=== PATIENT | male | born 1980 | race Caucasian/White ===

== ENCOUNTER 2019-03-15 02:07 | Emergency (ER) | payer BC ==
[2019-03-15] MEDS ORDERED: KETOROLAC 30 MG/ML VIAL IVP ONE (02:24)
--- NOTE | 2019-03-15 02:27 | Emergency Department Record ---
History of Present Illness - General Chief Complaint: Abdominal Pain Stated Complaint: RLQ PAIN Time Seen by Provider: 03/15/19 02:11 Source: Patient Mode of Arrival: Ambulatory Limitations: No limitations - History of Present Illness Initial Comments: 38 yo male presents to ED for evaluation of pain to the right flank and right lateral abdomen that began 2 days ago. Patient denies fevers, chills, nausea, or vomiting symptoms. Patient does report pain with ROM of the trunk and valsalva maneuvers. Patient denies urinary symptoms, denies history of kidney stones. Patient does report previous ventral hernia repair several years ago, denies previous appy/yonis. Patient denies health problems other than HTN. MD Complaint: Abdominal pain, Flank pain Onset/Timin -: Days(s) Location: R Flank Radiation: R flank, RLQ Severity: Severe Severity scale (1-10): 8 Quality: Sharp, Stabbing Consistency: Constant, Getting worse Worsens With: Movement Associated Symptoms: Constipation - Related Data Previous Rx's Medication Instructions Recorded Moxifloxacin HCl 400 mg PO DAILY #10 tablet 03/15/19 Allergies Allergy/AdvReac Type Severity Reaction Status Date / Time codeine Allergy HIVES Verified 03/15/19 02:09 metronidazole [From Flagyl] Allergy HIVES Verified 03/15/19 02:09 Penicillins Allergy HIVES Verified 03/15/19 02:09 chloraprep Allergy HIVES Uncoded 04/21/15 21:00 Travel Screening - Travel/Exposure Within Last 30 Days Have you traveled within the last 30 days?: No - Travel Symptoms Symptom Screening: None Review of Systems Constitutional: Denies: Chills, Fever, Malaise, Night sweats Eyes: Denies: Eye discharge, Eye pain ENT: Denies: Congestion, Ear pain, Epistaxis Respiratory: Denies: Cough, Dyspnea Cardiovascular: Denies: Chest pain, Dyspnea on exertion Endocrine: Denies: Fatigue, Heat or cold intolerance Gastrointestinal: Reports: Abdominal pain, Constipation. Denies: Nausea, Vomiting Genitourinary: Denies: Dysuria, Frequency, Hematuria, Incontinence, Retention Musculoskeletal: Reports: Back pain. Denies: Arthralgia Skin: Denies: Bruising, Change in color Neurological: Denies: Abnormal gait, Confusion, Headache, Seizure Psychiatric: Denies: Anxiety Hematological/Lymphatic: Denies: Anemia, Blood Clots Past Medical History - SOCIAL HISTORY Smoking Status: Light tobacco smoker (<10/day) - RESPIRATORY Hx Respiratory Disorders: No - CARDIOVASCULAR Hx Cardio Disorders: Yes Hx Hypertension: Yes - NEURO Hx Neuro Disorders: No - GI Hx GI Disorders: Yes Hx Abdominal Pain: Yes (umbilicus) Hx Reflux: Yes - Hx Genitourinary Disorders: No - ENDOCRINE Hx Endocrine Disorders: No - MUSCULOSKELETAL Hx Musculoskeletal Disorders: Yes Comment:: states chiropractor 2x/mo - PSYCH Hx Psych Problems: No - HEMATOLOGY/ONCOLOGY Hx Hematology/Oncology Disorders: No Family Medical History Any Significant Family History?: Yes Hx Heart Disease: Mother, Grandparents *Heart Comment: ABARCA Physical Exam - General General Appearance: Alert, Oriented x3, Cooperative, Moderate distress Limitations: No limitations - Head Head exam: Atraumatic, Normocephalic, Normal inspection Head exam detail: negative: Abrasion, Contusion, Damon's sign, General tenderness, Hematoma, Laceration - Eye Eye exam: Normal appearance. negative: Conjunctival injection, Periorbital swelling, Periorbital tenderness, Scleral icterus - ENT Ear exam: negative: Auricular hematoma, Auricular trauma Nasal Exam: negative: Active bleeding, Discharge, Dried blood, Foreign body Mouth exam: negative: Drooling, Laceration, Muffled voice, Tongue elevation - Neck Neck exam: Normal inspection. negative: Meningismus, Tenderness - Respiratory Respiratory exam: Normal lung sounds bilaterally. negative: Rales, Respiratory distress, Rhonchi, Stridor - Cardiovascular Cardiovascular Exam: Normal rhythm, Normal heart sounds, Tachycardia - GI/Abdominal GI/Abdominal exam: Soft, Tenderness (TTP RUQ, right flank, RLQ to a lesser extend. No rebound, +guarding, +peritoneal signs). negative: Rebound, Rigid - Rectal Rectal exam: Deferred - exam: Deferred - Extremities Extremities exam: Normal inspection. negative: Pedal edema, Tenderness - Back Back exam: Reports: CVA tenderness (R). Denies: CVA tenderness (L) - Neurological Neurological exam: Alert, Normal gait, Oriented X3 - Psychiatric Psychiatric exam: Normal affect, Normal mood - Skin Skin exam: Normal color. negative: Abrasion Type of lesion: negative: abrasion Course Vital Signs 03/15/19 02:09 Temperature 98.9 F Pulse Rate 135 H Respiratory 16 Rate Blood Pressure 135/94 Pulse Ox 95 - Reevaluation(s) Reevaluation #1: 03/15/19 03:08 Laboratory studies were reviewed and are grossly unremarkable for an acute process except for the following: EBC: 15.4 UA reviewed: WBC: 0-2 RBC: None 2+ Bacteria 4+ Amorphous sediment Patient just returned from CT imaging, reports improvement in his pain symptoms. Reevaluation #2: 03/15/19 03:14 CT Abdomen and Pelvis: Cecal diverticulitis Patient was updated on all results, discussed inpatient vs. outpatient treatment for diverticulitis/pain control. Patient reports that he does not want pain medication, as a result, would prefer being discharged home on antibiotics. Patient is allergic to Flagyl, will treat with Moxifloxacin as directed. Patient was instructed to return to ED for any worsening in his pain symptoms, fevers, unable to tolerate PO, or general worsening of his symptoms. Patient verbalizes understanding of all instructions and appears stable for discharge at this time. Medical Decision Making - Lab Data Result diagrams: 03/15/19 02:20 03/15/19 02:20 Disposition Disposition: Discharge Clinical Impression: Cecal diverticulitis Disposition: Home, Self-Care Condition: (2) Stable Instructions: Diverticulitis (ED) Additional Instructions: Return to ED if your symptoms worsen or if you have any concerns. Moxifloxacin as directed. Follow-up with your family doctor in 3-5 days as directed. Prescriptions: Moxifloxacin HCl 400 mg PO DAILY #10 tablet Forms: Patient Portal Access Time of Disposition: 03:41 Quality - Quality Measures Quality Measures: N/A - Blood Pressure Screening Does Patient Have Any of the Following: No Blood Pressure Classification: Hypertensive Reading Systolic Measurement: 135 Diastolic Measurement: 94 Screening for High Blood Pressure: < First Hypertensive BP, F/U Documented > [G8950] First Hypertensive Follow-up Interventions: Referral to alternative/primary care provider.
[2019-03-15] MEDS ORDERED: 0.9 % SODIUM CHLORIDE 1000ML 1,000 ML IV SCH (02:30)
[2019-03-15 02:35] LABS: ABSOLUTE NEUTROPHIL COUNT 12.23; BASO % 0.2 % (0-6); EOS % 1.3 % (0-6); GRAN % 79.4 % (47-80); HEMATOCRIT 43.9 % (42.0-52.0); HEMOGLOBIN 15.6 gm/dl (14.0-18.0); LYMPH % 8.9 % (16-45); MEAN CELL VOLUME 86.9 fl (81-97); MEAN CORPUSCULAR HEMOGLOBIN 30.9 pg (27-33); MEAN CORPUSCULAR HGB CONC 35.5 g/dl (32-36); MEAN PLATELET VOLUME 9.2 fl (7.4-10.4); MONO % 10.2 % (0-9); PLATELET COUNT 240 K/uL (130-400); RED BLOOD COUNT 5.05 M/uL (4.40-5.70); RED CELL DISTRIBUTION WIDTH 12.3 % (11.5-14.5); WHITE BLOOD COUNT W/O DIFF 15.4 K/uL (4.2-12.2)
[2019-03-15 02:37] LABS: URINE APPEARANCE CLOUDY; URINE BILIRUBIN SMALL (NEGATIVE); URINE BLOOD NEGATIVE (NEGATIVE); URINE COLOR YELLOW; URINE GLUCOSE (UA) NEGATIVE (NEGATIVE); URINE KETONE TRACE (NEGATIVE); URINE LEUKOCYTE ESTERASE TRACE (NEGATIVE); URINE NITRITE POSITIVE (NEGATIVE); URINE UROBILINOGEN 0.2 E.U./dL (0.20 - 1.00)
[2019-03-15 02:45] LABS: URINE AMORPHOUS SEDIMENT 4+; URINE BACTERIA 2+; URINE CALCIUM OXALATE CRYSTALS FEW /hpf; URINE EPITHELIAL CELLS NONE SEEN (FEW); URINE RBC NONE SEEN (NONE SEEN); URINE WBC 0 - 2 (0-2/hpf)
[2019-03-15 02:48] LABS: BLOOD UREA NITROGEN 11 mg/dL (6-20); EST GLOMERULAR FILTRATION RATE > 60 mL/min
[2019-03-15 02:49] LABS: LIPASE 32 U/L (13-60); TOTAL PROTEIN 7.6 g/dL (6.6-8.7)
[2019-03-15 02:51] LABS: GLUCOSE,RANDOM 140 mg/dL (74-109)
[2019-03-15 02:54] LABS: ALB/GLOB RATIO 1.5 (1.1-1.8); ALBUMIN 4.5 g/dL (4.0-5.0); ALKALINE PHOSPHATASE 67 U/L (40-129); ALT/SGPT 23 U/L (<41); AST/SGOT 15 U/L (10.0-50.0)
[2019-03-15] MEDS ORDERED: CIPROFLOXACIN HCL 500 MG TABLET PO ONE (03:37)
--- NOTE | 2019-03-17 06:33 | CT SCAN REPORT ---
DATE: 03/15/2019 at 0253. EXAM: CT OF THE ABDOMEN AND PELVIS WITHOUT CONTRAST. HISTORY: ABDOMINAL PAIN. RIGHT FLANK AND LOWER QUADRANT PAIN FOR THREE DAYS. TECHNIQUE: Thin-collimation helical CT examination of the abdomen and pelvis was performed without oral or intravenous contrast administration. Lack of oral and intravenous contrast utilization limits evaluation of the bowel and solid viscera, respectively. COMPARISON: CT of the abdomen and pelvis with contrast dated 04/21/2015. FINDINGS: Minor patchy opacities are noted within the dependent lung bases consistent with atelectasis. The lung bases are otherwise clear, and there is no pleural or pericardial effusion. The heart is near the upper limits of normal in size. There is possible mild, diffuse hepatic steatosis. No suspicious focal hepatic lesion. The spleen, pancreas, adrenal glands, and kidneys are normal in appearance. The gallbladder is unremarkable, and no biliary ductal dilatation is seen. No intra-abdominal nor retroperitoneal lymphadenopathy. The vasculature, to the extent visualized, is normal in appearance. No pelvic mass nor adenopathy. There is trace free fluid in the dependent pelvis. No focal urinary bladder abnormality is seen, though evaluation is limited by lack of distension. There is mild fat density prominence within the right inguinal canal proximally. Diagnostic considerations include lipoma and small, fat-filled umbilical hernia. There is diverticulosis scattered throughout the colon. There is segmental wall thickening of the ascending colon beginning just distal to the ileocecal valve. This segment measures approximately 7.0 to 8.0 cm. There is associated moderate mesenteric fat stranding, thickening of the lateral conal fascia and trace fluid in the right paracolic gutter. These findings are suspicious for acute diverticulitis/colitis. No definite abscess nor definite extraluminal air. The appendix is visualized and is normal in appearance. No evidence of bowel obstruction. No lytic or blastic bone lesion. IMPRESSION: SEGMENTAL WALL THICKENING OF THE ASCENDING COLON WITH MODERATE STRANDING OF THE ADJACENT MESENTERIC FAT, THICKENING OF THE LATERAL CONAL FASCIA AND TRACE ASCITES SUSPICIOUS FOR MODERATE TO SEVERE DIVERTICULITIS/COLITIS. NO DEFINITE ABSCESS NOR EXTRALUMINAL AIR. Job Number: [id number] [facility]
== END 2019-03-15 04:09 | disposition home or self-care (01) ==
LOC: ER 02:07
DX: K57.32 Diverticulitis of large intestine without perforation or abscess without bleeding (principal); I10 Essential (primary) hypertension; F17.210 Nicotine dependence, cigarettes, uncomplicated
CPT/HCPCS: 74176; 80053; 81001; 83690; 85025; 96374; 99284; J1885; J7030